=== PATIENT | male | born 1980 | race Caucasian/White ===

== ENCOUNTER 2021-08-07 22:31 | Emergency (ER) | payer OTHER ==
[~2021-08-07] VITALS: Ht 175.3 cm; Wt 97.7 kg
[2021-08-07] MEDS ORDERED: IV RINGERS SOLUTION,LACTATED 1,000 ML IV SCH (23:30)
[2021-08-07] MEDS ORDERED: GLUCAGON,HUMAN RECOMBINANT 1 MG KIT. IV ONE (23:30)
[2021-08-07] MEDS ORDERED: FAMOTIDINE 20 MG/2 ML VIAL IVP ONE (23:30)
[2021-08-07] MEDS ORDERED: ONDANSETRON PF 4 MG/2 ML VIAL. IVP ONE (23:30)
[2021-08-07 23:59] LABS: BASO # 0.1 x10^3/uL (0.0-0.2); BASO % 1 % (0-3); EOS # 0.1 x10^3/uL (0.0-0.7); EOS % 1 % (0-3); HEMATOCRIT 45.7 % (39.0-53.0); HEMOGLOBIN 15.6 g/dL (13.0-17.5); LYMPH # 2.4 x10^3/uL (1.0-4.8); LYMPH % 28 % (24-48); MEAN CORPUSCULAR HEMOGLOBIN 30 pg (25-35); MEAN CORPUSCULAR HGB CONC 34 g/dL (31-37); MEAN CORPUSCULAR VOLUME 86 fL (79-100); MONO # 0.8 x10^3/uL (0.0-1.1); MONO % 9 % (0-9); NEUT # 5.1 x10^3uL (1.8-7.7); NEUT % 61 % (31-73); PLATELET COUNT 248 x10^3/uL (140-400); RED CELL DISTRIBUTION WIDTH 14.3 % (11.5-14.5); WHITE BLOOD COUNT 8.4 x10^3/uL (4.0-11.0)
[2021-08-08 00:06] LABS: CALCIUM 9.2 mg/dL (8.5-10.1); CREATININE 1.2 mg/dL (0.7-1.3); GFR 66.7
--- NOTE | 2021-08-08 00:07 | RAD ---
EXAMINATION: Chest and abdominal radiograph. VIEWS: Single AP view of the chest 2 images single supine view of the abdomen COMPARISON: None INDICATION:40 years, Male, food bolus. FINDINGS: Chest: Normal cardiomediastinal silhouette. No focal consolidation. No pleural effusion or pneumothorax. No acute osseous process. Abdomen: A nonobstructive bowel gas pattern is present. There is a moderate colorectal stool burden present. N o pathologic air-fluid levels, free air, or bowel dilation. No pathologic calcification. No organome kaitlin. Osseous structures normal. Lung bases clear. IMPRESSION: 1. No acute cardiopulmonary process. 2. Nonobstructive bowel gas pattern. Electronically signed by: Ilan Hernández DO (08/08/2021 12:05 AM) [facility]
[2021-08-08 00:12] LABS: ALBUMIN 4.7 g/dL (3.4-5.0); DIRECT BILIRUBIN 0.1 mg/dL (0.0-0.2); TOTAL BILIRUBIN 0.6 mg/dL (0.2-1.0); TOTAL PROTEIN 7.8 g/dL (6.4-8.2)
--- NOTE | 2021-08-08 01:01 | PHYS DOC ---
Past History Past Surgical History: Tonsillectomy (JED CRESPO MD) Alcohol Use: None (JED CRESPO MD) General Adult EDM: Chief Complaint: NAUSEA/VOMITING/DIARRHEA HPI: HPI: "..I was eating barbecued pork boneless ribs... And all of a sudden I got something stuck in my throat... Is not gone down... A keep vomiting of my spit...." Patient is a 40 year old male who presents with above history of food bolus stuck in his esophagus. Patient places at approximately T4 level. Patient denies previous history of food boluses. Patient denies any previous history of dysphagia. Patient denies any previous history of reflux or gastritis. Patient has had nausea and vomiting since food bolus at approximately 1730 hrs. The ander vail gives. no history of prior EGDs or colonoscopy. Patient normally healthy. No recent travel. No specific ill contacts. Normally follows with . (JED CRESPO MD) Review of Systems: Review of Systems: Constitutional: Denies fever or chills Eyes: Denies change in visual acuity HENT: Denies nasal congestion or sore throat Respiratory: Denies cough or shortness of breath Cardiovascular: Denies chest pain or edema GI: Complains of food bolus and, nausea, vomiting,. Denies bloody stools or diarrhea : Denies dysuria Musculoskeletal: Denies back pain or joint pain Integument: Denies rash Neurologic: Denies headache, focal weakness or sensory changes Endocrine: Denies polyuria or polydipsia Lymphatic: Denies swollen glands Psychiatric: Denies depression or anxiety (JED CRESPO MD) Family History: Family History: Noncontributory to presentation. (JED CRESPO MD) Current Medications: Current Meds: Current Medications Medications (Trade) Dose Ordered Sig/Ko Start Time Stop Time Status Last Admin Dose Admin Famotidine (Pepcid Vial) 20 mg 1X ONCE 08/07/21 23:30 08/07/21 23:31 DC 08/07/21 23:46 20 MG Glucagon (Glucagen Kit) 1 mg 1X ONCE 08/07/21 23:30 08/07/21 23:31 DC 08/07/21 23:45 1 MG Lactated Ringer's 1,000 ml @ 1,000 mls/hr Q1H 08/07/21 23:30 08/08/21 00:29 DC 08/07/21 23:31 1,000 MLS/HR Ondansetron HCl (Zofran) 8 mg 1X ONCE 08/07/21 23:30 08/07/21 23:31 DC 08/07/21 23:46 8 MG (JED CRESPO MD) Allergies: Allergies: Allergies Coded Allergies Type Severity Reaction Last Updated Verified No Known Drug Allergies 08/07/21 No (JED CRESPO MD) Physical Exam: PE: Constitutional: In moderate acute distress, non-toxic appearance. [] HENT: Normocephalic, atraumatic, bilateral external ears normal, oropharynx moist, no oral exudates, nose normal. [] Eyes: PERRLA, EOMI, conjunctiva normal, no discharge. [] Neck: Normal range of motion, no tenderness, supple, no stridor. [] Cardiovascular: Bradycardia heart rate regular rhythm, no murmur [] Lungs & Thorax: Bilateral breath sounds equal apex on auscultation [] Abdomen: Bowel sounds normal, soft, no tenderness, no masses, no pulsatile masses. [] Skin: Warm, dry, no erythema, no rash. [] Back: No tenderness, no CVA tenderness. [] Extremities: No tenderness, no cyanosis, no clubbing, ROM intact, no edema. [] Neurologic: Alert and oriented X 3, normal motor function, normal sensory function, no focal deficits noted. [] Psychologic: Affect anxious, judgement normal, mood normal. [] (JED CRESPO MD) Current Patient Data: Labs: Laboratory Tests Test 08/07/21 23:25 White Blood Count 8.4 x10^3/uL (4.0-11.0) Red Blood Count 5.30 x10^6/uL (4.30-5.70) Hemoglobin 15.6 g/dL (13.0-17.5) Hematocrit 45.7 % (39.0-53.0) Mean Corpuscular Volume 86 fL (79-100) Mean Corpuscular Hemoglobin 30 pg (25-35) Mean Corpuscular Hemoglobin Concent 34 g/dL (31-37) Red Cell Distribution Width 14.3 % (11.5-14.5) Platelet Count 248 x10^3/uL (140-400) Neutrophils (%) (Auto) 61 % (31-73) Lymphocytes (%) (Auto) 28 % (24-48) Monocytes (%) (Auto) 9 % (0-9) Eosinophils (%) (Auto) 1 % (0-3) Basophils (%) (Auto) 1 % (0-3) Neutrophils # (Auto) 5.1 x10^3uL (1.8-7.7) Lymphocytes # (Auto) 2.4 x10^3/uL (1.0-4.8) Monocytes # (Auto) 0.8 x10^3/uL (0.0-1.1) Eosinophils # (Auto) 0.1 x10^3/uL (0.0-0.7) Basophils # (Auto) 0.1 x10^3/uL (0.0-0.2) Sodium Level 141 mmol/L (136-145) Potassium Level 4.0 mmol/L (3.5-5.1) Chloride Level 103 mmol/L (98-107) Carbon Dioxide Level 30 mmol/L (21-32) Anion Gap 8 (6-14) Blood Urea Nitrogen 15 mg/dL (8-26) Creatinine 1.2 mg/dL (0.7-1.3) Estimated GFR (Cockcroft-Gault) 66.7 Glucose Level 128 mg/dL (70-99) H Calcium Level 9.2 mg/dL (8.5-10.1) Total Bilirubin 0.6 mg/dL (0.2-1.0) Direct Bilirubin 0.1 mg/dL (0.0-0.2) Aspartate Amino Transferase (AST) 21 U/L (15-37) Alanine Aminotransferase (ALT) 43 U/L (16-63) Alkaline Phosphatase 61 U/L (46-116) Total Protein 7.8 g/dL (6.4-8.2) Albumin 4.7 g/dL (3.4-5.0) Lipase 354 U/L (73-393) Ethyl Alcohol Level < 10 mg/dL (0-10) Vital Signs: Vital Signs Date Time Temp Pulse Resp B/P (MAP) Pulse Ox O2 Delivery O2 Flow Rate FiO2 08/08/21 00:42 92 19 123/93 (103) 97 Room Air 08/07/21 22:59 98.3 (JED CRESPO MD) EKG: EKG: My interpretation EKG shows a sinus rhythm at 61 bpm. No findings of acute STEMI or contralateral changes. Time of EKG is 23 31 hrs. [] (JED CRESPO MD) Radiology/Procedures: Radiology/Procedures: [][place] [address] IMAGING REPORT Signed PATIENT: ROBERT THORNTONOUNT: [id number] : 1980 LOCATION: ER AGE: 40 SEX: M EXAM STATUS: REG ER ORD. PHYSICIAN: JED CRESPO MD REASON: food bolus PROCEDURE: ACUTE ABDOMEN SERIES EXAMINATION: Chest and abdominal radiograph. VIEWS: Single AP view of the chest 2 images single supine view of the abdomen COMPARISON: None INDICATION:40 years, Male, food bolus. FINDINGS: Chest: Normal cardiomediastinal silhouette. No focal consolidation. No pleural effusion or pneumothorax. No acute osseous process. Abdomen: A nonobstructive bowel gas pattern is present. There is a moderate colorectal stool burden present. No pathologic air-fluid levels, free air, or bowel dilation. No pathologic calcification. No organomegaly. Osseous structures normal. Lung bases clear. IMPRESSION: 1. No acute cardiopulmonary process. 2. Nonobstructive bowel gas pattern. Electronically signed by: Vargas Hernández DO (08/08/2021 12:05 AM) [facility] DICTATED AND SIGNED BY: VARGAS HERNÁNDEZ DO DATE: 08/08/21 0002 CC: DERRICK MARTI DO; JED CRESPO MD ~MTH0 0 (JED CRESPO MD) Heart Score: C/O Chest Pain: N/A HEART Score for Chest Pain: HEART Score for Chest Pain Response (Comments) Value History Slighlty/Non-Suspicious 0 ECG Normal 0 Age < 45 0 Risk Factors 1 or 2 Risk Factors 1 Troponin < Normal Limit 0 Total 1 Risk Factors: Risk Factors: DM, Current or recent (<one month) smoker, HTN, HLP, family history of CAD, obesity. Risk Scores: Score 0 - 3: 2.5% MACE over next 6 weeks - Discharge Home Score 4 - 6: 20.3% MACE over next 6 weeks - Admit for Clinical Observation Score 7 - 10: 72.7% MACE over next 6 weeks - Early Invasive Strategies (JED CRESPO MD) Course & Med Decision Making: Course & Med Decision Making Pertinent Labs and Imaging studies reviewed. (See chart for details) Discussed presentation, testing and tx. plan with Dr. Vidal, advised transfer to [facility], plan possible EGD in AM Discussed presentation, testing and tx. plan with Dr. Mckeon will accept pt in transfer to [facility], with consult to Dr. Vidal GI. Patient ER hold since no beds are available currently at [facility]-plan transfer directly to presurgery in a.m. patient remain n.p.o. Impression: 1. Food bolus [] (JED CRESPO MD) Course & Med Decision Making Patient was boarding in the emergency department but had been accepted to [facility] by Dr. Mckeon for GI evaluation ([facility] has no available hospital beds). Repeat glucagon and Zofran were given in the emergency department per Dr. Lira' instructions. I was informed by RN that patient was now able to tolerate liquids and wished to leave AMA. I informed her to d/w Dr. Mckeon the admitting attending. I was not a provider directly responsible for this pts' care. The patient has decided to leave our facility against medical advice. The patient possesses the ability to evaluate all treatment options, comparing the risks and benefits of each option, communicate his or her choice in a consistent manner over time, and is able to make rational choices. Patient understands and acknowledges that the decision to leave may result in undesirable consequences such as , permanent disability, and/or loss of current lifestyle. Even though leaving AMA is not ideal, RN recommended to resume care as soon as possible with another provider. This conversation was witnessed by another member of the emergency department staff and rn clearly communicated the patient is welcome to return anytime to continue care at our facility. ([facility]) Dragon Disclaimer: Dragon Disclaimer: This electronic medical record was generated, in whole or in part, using a voice recognition dictation system. (JED CRESPO MD) Departure Departure: Impression: Primary Impression: Esophageal obstruction Additional Impression: Bolus impaction of digestive tract Disposition: LEFT AGAINST MEDICAL ADVICE Condition: STABLE Referrals: DERRICK MARTI DO (PCP) Rickey Disclaimer This chart was dictated in whole or in part using Voice Recognition software in a busy, high-work load, and often noisy Emergency Department environment. It may contain unintended and wholly unrecognized errors or omissions. (JED CRESPO MD) JED CRESPO MD Aug 08, 2021 01:01 DON THAO DO Aug 09, 2021 08:20
[2021-08-08 04:14] LABS: BARBITURATES NEG (NEG); BENZODIAZEPINES NEG (NEG); CANNABINOIDS NEG (NEG); COCAINE NEG (NEG); METHADONE NEG (NEG); OPIATES NEG (NEG); PHENCYCLIDINE NEG (NEG)
[2021-08-08 04:17] LABS: BACTERIA,URINE 0 /HPF (0-FEW); BILIRUBIN,URINE NEG (NEG); CLARITY,URINE CLEAR; COLOR,URINE YELLOW; GLUCOSE,URINE NEG (NEG); NITRITE,URINE NEG (NEG); RBC,URINE 0 /HPF (0-2); SQUAMOUS EPITHELIAL CELL,UR OCC /LPF; UROBILINOGEN,URINE 0.2 mg/dL (0.2 mg/dL); WBC,URINE OCC /HPF (0-4)
[2021-08-08 04:18] LABS: AMPHETAMINE/METHAMPHETAMINE NEG (NEG)
--- NOTE | 2021-08-08 04:50 | EKG ---
[address] [address] Test Date: 2021-08-07 Test Time: 23:31:29 Pat Name: ROBERT THORNTON Department: Room: Gender: M [employer] Machine: : [id number] Requested By: JED CRESPO Order Number: [id number] Reading MD: Aamir Nicholson Measurements Intervals Mcgill Rate: 61 P: 31 MS: 166 QRS: 4 QRSD: 92 T: 1 QT: 402 QTc: 406 Interpretive Statements SINUS RHYTHM NO SPECIFIC ECG ABNORMALITIES RI6.02 No previous ECG available for comparison Electronically Signed On 08-10-2021 13:27:04 CDT by Aamir Nicholson
[2021-08-08] MEDS ORDERED: ONDANSETRON PF 4 MG/2 ML VIAL. IVP ONE (08:00)
[2021-08-08] MEDS ORDERED: GLUCAGON,HUMAN RECOMBINANT 1 MG KIT. IV ONE (08:00)
[2021-08-08 18:34] VITALS: BP 141/98
--- NOTE | 2021-08-09 14:43 | NUR ---
IP: Attempted to contact pt concerning covid results. No answer.
--- NOTE | 2021-08-10 11:44 | NUR ---
IP: Attempted a second time to contact pt concerning covid result. No answer. Will mail a copy.
== END 2021-08-08 18:33 | disposition short-term general hospital (02) ==
LOC: ER 22:31
DX: T18.128A Food in esophagus causing other injury, initial encounter (principal); R11.2 Nausea with vomiting, unspecified; Z20.822 Contact with and (suspected) exposure to COVID-19; X58.XXXA Exposure to other specified factors, initial encounter; Y93.89 Activity, other specified; Y92.89 Other specified places as the place of occurrence of the external cause; Y99.8 Other external cause status
CPT/HCPCS: 36415; 74022; 80048; 80076; 80307; 81001; 83690; 85025; 85610; 85730; 87426; 93005; 96361; 96374; 96375; 96376; 99285; G0480; J1610; J2405; J3490; J7120; U0003